=== PATIENT | male | born 1985 | race Caucasian/White ===

== ENCOUNTER 2016-06-17 04:49 | Emergency (ER) | payer BC ==
[~2016-06-17] VITALS: Ht 195.6 cm; Wt 175.0 kg
[~2016-06-17 04:49] MED LIST: ACET325 PO; AMPH30CA PO; AXID150C PO; CEPH500C PO; COUM5TAB PO; DILA2TAB2 PO; DOXY100T PO; FLEX10TA PO; FOLITAB6 PO; HYDR2TAB PO; SILV1CRE59 TOP; SUCR1TAB6 PO; SULF1TAB47 PO; ULTR50TA PO; XANA2TAB2 PO
[2016-06-17 04:57] VITALS: BP 166/97; PULSE 109; RESP 20; TEMP 98.7; O2SAT 100
[2016-06-17] MEDS ORDERED: TETANUS/DIPHTHERIA TOXOID ADULT 0.5 ML VIAL IM ONE (05:45)
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
== END 2016-06-17 08:02 | disposition home or self-care (01) ==
LOC: NEPE 04:49
DX: S00.83XA Contusion of other part of head, initial encounter (principal); W22.8XXA Striking against or struck by other objects, initial encounter; Z23 Encounter for immunization
CPT/HCPCS: 70450; 90471; 90714